=== PATIENT | female | born 1985 | race Caucasian/White ===

== ENCOUNTER 2017-03-06 10:43 | Emergency (ER) | payer OTHER ==
[~2017-03-06] VITALS: Ht 170.2 cm; Wt 111.8 kg
[~2017-03-06 10:43] MED LIST: ENDOCET 5-3251 EACH PO; IBUPROFEN800 MG PO
[2017-03-06] MEDS ORDERED: ADVIL200 MG PO (11:40)
[2017-03-06] MEDS ORDERED: CLEOCIN150 MG PO (11:40)
[2017-03-06] MEDS ORDERED: TRAMADOL HCL50 MG PO (12:37)
[2017-03-06 12:47] VITALS: BP 142/89
== END 2017-03-06 12:48 | disposition home or self-care (01) ==
LOC: EME 10:43
PROC: 0C92XZZ Drainage of Hard Palate, External Approach (ICD-10-PCS; principal; 2017-03-06)
DX: K04.7 Periapical abscess without sinus (principal); R10.9 Unspecified abdominal pain
CPT/HCPCS: 99281; 99284